=== PATIENT | female | born 1970 | race Two or more races ===

== ENCOUNTER 2021-06-17 15:36 | Emergency (ER) | payer MEDICAID ==
[~2021-06-17] VITALS: Ht 149.9 cm; Wt 63.5 kg
[2021-06-17 15:55] VITALS: BP 121/83
--- NOTE | 2021-06-17 16:16 | NUR ---
KELY IRWIN EXAMINING PT
--- NOTE | 2021-06-17 16:23 | NUR ---
Trae TARIQ, Female Manager Animation accompanied female patient for Rectal Exam, performed by KELY Pearson.
[2021-06-17] MEDS ORDERED: METR500T1 PO (16:27)
[2021-06-17] MEDS ORDERED: POLY10SO OP (16:27)
[2021-06-17] MEDS ORDERED: NYST15CR6 TP (16:27)
[2021-06-17] MEDS ORDERED: PHEN1SUP5 RC (16:27)
--- NOTE | 2021-06-17 16:38 | NUR ---
Patient discharged with v/s stable. Written and verbal after care instructions given and explained. Patient alert, oriented and verbalized understanding of instructions. Ambulatory with steady gait. All questions addressed prior to discharge. ID band removed. Patient advised to follow up with PMD. Rx of FLAGYL, NYSTATIN, PREPARATION H SUPPOSITORY, AND POLYTRIM EYE DROPS given. Patient educated on indication of medication including possible reaction and side effects. Opportunity to ask questions provided and answered.
== END 2021-06-17 16:38 | disposition home or self-care (01) ==
LOC: MED 15:36
DX: N76.0 Acute vaginitis (principal); K64.9 Unspecified hemorrhoids; H10.12 Acute atopic conjunctivitis, left eye; Z79.899 Other long term (current) drug therapy
CPT/HCPCS: 81002; 81025; 99283

== ENCOUNTER 2021-08-21 08:55 | Emergency (ER) | payer MEDICAID ==
[~2021-08-21] VITALS: Ht 152.4 cm; Wt 62.6 kg
[~2021-08-21 08:55] MED LIST: METR500T1 PO; NYST15CR6 TP; PHEN1SUP5 RC; POLY10SO OP
[2021-08-21 09:07] VITALS: BP 116/75
--- NOTE | 2021-08-21 09:13 | NUR ---
pt ambulated to bed 6
--- NOTE | 2021-08-21 09:35 | NUR ---
51 Y/O F CO/ PAIN 6/10 FOR LOWER PELVIC, UTI BURNIG, YELLOW DISCHARGD SYMPTOMS STARTED 3 DAYS AGO. DYSURIA FOR 1 YEAR. PT WAS GIVEN A CREAM AND ANTIBIOTICS BY PCP AND WAS FINISHED WITH NO RELIVE. NKA OR PMH.
--- NOTE | 2021-08-21 10:13 | NUR ---
DR HENNING AT BEDSIDE.
[2021-08-21 10:36] LABS: APPEARANCE,URINE CLEAR (CLEAR); BILIRUBIN,URINE NEGATIVE (NEGATIVE); BLOOD, URINE NEGATIVE (NEGATIVE); COLOR,URINE YELLOW (YELLOW); LEUKOCYTE ESTERASE ,URINE NEGATIVE (NEGATIVE); NITRITE, URINE NEGATIVE (NEGATIVE); UGLUCOSE NEGATIVE (NEGATIVE)
[2021-08-21 11:14] VITALS: BP 104/66
--- NOTE | 2021-08-21 11:28 | NUR ---
PELVIC EXAM WAS PERFORMED BY DR HENNING AT BEDSIDE AND SPECIMENT TAKEN TO THE LAB.
[2021-08-21] MEDS ORDERED: BENZ28CR TP (12:57)
--- NOTE | 2021-08-21 13:16 | NUR ---
Patient discharged with v/s stable. Written and verbal after care instructions given and explained. Patient alert, oriented and verbalized understanding of instructions. Ambulatory with steady gait. All questions addressed prior to discharge. ID band removed. Patient advised to follow up with PMD. Rx of VENZOCA/RES/ELADIO/GRACE/VARGAS&D/ given. Opportunity to ask questions provided and answered.
== END 2021-08-21 13:15 | disposition home or self-care (01) ==
LOC: MED 08:55
DX: N76.0 Acute vaginitis (principal); Z79.899 Other long term (current) drug therapy
CPT/HCPCS: 81003; 81025; 87210; 99283

== ENCOUNTER 2022-07-09 15:34 | Emergency (ER) | payer SELFPAY ==
[~2022-07-09] VITALS: Ht 157.5 cm; Wt 61.2 kg
[~2022-07-09 15:34] MED LIST changes: +BENZ28CR TP
[2022-07-09 15:45] VITALS: BP 102/75
[2022-07-09] MEDS ORDERED: DOXY100T9 PO (18:24)
[2022-07-09] MEDS ORDERED: PROM118S5 PO (18:24)
[2022-07-09] MEDS ORDERED: BENZ-300 PO (18:24)
[2022-07-09] MEDS ORDERED: IBUP-2213 PO (18:24)
[2022-07-09] MEDS ORDERED: SUD30 PO (18:25)
[2022-07-09] MEDS ORDERED: cefTRIAXone 500 MG VIAL ONE (18:32)
[2022-07-09] MEDS ORDERED: LIDOCAINE MPF 1% 5 ML ONE (18:33)
[2022-07-09] MEDS: cefTRIAXone 500 MG in LIDOCAINE MPF 1% 1 ML IM ONE (18:42)
--- NOTE | 2022-07-09 18:44 | NUR ---
Patient discharged with v/s stable. Written and verbal after care instructions given and explained. Patient alert, oriented and verbalized understanding of instructions. Ambulatory with steady gait. All questions addressed prior to discharge. ID band removed. Patient advised to follow up with PMD. Rx of DOXYCYCLINE, MOTRIN given. Patient educated on indication of medication including possible reaction and side effects. Opportunity to ask questions provided and answered.
== END 2022-07-09 18:44 | disposition home or self-care (01) ==
LOC: MED 15:34
DX: J06.9 Acute upper respiratory infection, unspecified (principal); Z11.3 Encounter for screening for infections with a predominantly sexual mode of transmission; Z79.899 Other long term (current) drug therapy
CPT/HCPCS: 81002; 81025; 87491; 96372; 99283; J0696; J2001